=== PATIENT | male | born 1985 | race Caucasian/White ===

== ENCOUNTER 2018-02-13 01:15 | Emergency (ER) | payer OTHER ==
[2018-02-13] MEDS: LIDOCAINE 1% (MDV) 10 ML INJ INFIL (04:30)
[2018-02-13] MEDS: HYDROCODONE/APAP (5/325) TAB PO (05:10)
[2018-02-13] MEDS: DIPHTH/TET/ACEL PERTUSS (ADULT) 0.5 ML VIAL IM* (05:11)
== END 2018-02-13 07:05 | disposition home or self-care (01) ==
LOC: FTE 01:15
DX: S01.21XA Laceration without foreign body of nose, initial encounter (principal); S02.2XXA Fracture of nasal bones, initial encounter for closed fracture; S49.91XA Unspecified injury of right shoulder and upper arm, initial encounter; Y04.8XXA Assault by other bodily force, initial encounter; Z23 Encounter for immunization
CPT/HCPCS: 12013; 70450; 70486; 72125; 73030-RT; 90471; 90715; 99285-25